=== PATIENT | male | born 1975 | race Caucasian/White ===

== ENCOUNTER 2016-08-07 09:48 | Emergency (ER) | payer OTHER ==
--- NOTE | 2016-08-07 10:41 | PDOC ---
History of Present Illness - General Chief Complaint: Sore Throat Stated Complaint: STREP THROAT Time Seen by Provider: 08/07/16 09:57 History Source: Patient Exam Limitations: No Limitations - History of Present Illness Initial Comments: 08/07/16 10:37 41-year-old male presents to the ED of sore throat for the past 2 days associated white spots in the back of his throat. Patient denies fever but states felt chills yesterday and took Tylenol with good effect. Patient denies medical history, smoking, recent travel. Timing/Duration: reports: other (2 days) Severity: reports: mild Possible Cause: Yes: occasional episodes Associated Symptoms: reports: sore throat Past History - Past Medical History Allergies/Adverse Reactions: Allergies Allergy/AdvReac Type Severity Reaction Status Date / Time No Known Allergies Allergy Verified 08/07/16 09:54 Home Medications: Ambulatory Orders NK [No Known Home Medication] 08/07/16 - Psycho/Social/Smoking Cessation Hx Anxiety: No Suicidal Ideation: No Smoking History: Never smoked Have you smoked in the past 12 months: No Information on smoking cessation initiated: No Hx Alcohol Use: No Drug/Substance Use Hx: No Substance Use Type: None Patient Lives Alone: No Review of Systems - Review of Systems Able to Perform ROS?: Yes Constitutional: Yes: Chills HEENTM: Yes: Throat Pain. No: Difficulty Swallowing Respiratory: No: Symptoms reported Cardiac (ROS): No: Symptoms Reported ABD/GI: No: Symptoms Reported Integumentary: No: Rash Neurological: No: Headache *Physical Exam - Vital Signs Last Vital Signs Temp Pulse Resp BP Pulse Ox 98 F 83 18 166/93 100 08/07/16 09:54 08/07/16 09:54 08/07/16 09:54 08/07/16 09:54 08/07/16 09:54 - Physical Exam General Appearance: Yes: Nourished, Appropriately Dressed. No: Apparent Distress HEENT: positive: EOMI, ANKIT, TMs Normal, Pharyngeal Erythema (with mild exudate to 2+ tonsils greater on the left left) Neck: positive: Supple. negative: Lymphadenopathy (R), Lymphadenopathy (L) Respiratory/Chest: positive: Lungs Clear, Normal Breath Sounds. negative: Respiratory Distress, Accessory Muscle Use Cardiovascular: positive: Regular Rhythm, Regular Rate. negative: Murmur Medical Decision Making - Medical Decision Making 08/07/16 10:41 Patient with sore throat since yesterday patient with sore throat since yesterday and on exam had mild erythema with exudate greater to the left tonsil. Patient ordered for rapid strep. 08/07/16 10:42 Rapid strep negative. Patient will be ordered for to begin if no relief in the next 2 days with [id number] Motrin and Tylenol *DC/Admit/Observation/Transfer Diagnosis at time of Disposition: Acute tonsillitis Qualifiers: Pharyngitis/tonsillitis etiology: unspecified etiology Qualified Code(s): J03.90 - Acute tonsillitis, unspecified - Discharge Dispostion Disposition: HOME Condition at time of disposition: Good - Patient Instructions Printed Discharge Instructions: DI for Pharyngitis/Tonsillopharyngitis -- Adult Additional Instructions: Although your strep test was negative, I do recommend to continue with Motrin every 6-8 hours for discomfort and eat soft non-abrasive foods. If no relief over the next 2 days you may begin amoxicillin.
[2016-08-07 10:46] VITALS: BP 166/93; PULSE 83; TEMP 98; BMI 26.9
== END 2016-08-07 11:09 | disposition home or self-care (01) ==
LOC: JER 09:48 → JERFT 09:48
DX: J03.90 Acute tonsillitis, unspecified (principal)
CPT/HCPCS: 87070; 87430; 99281-25